=== PATIENT | female | born 1985 | race Caucasian/White ===

== ENCOUNTER 2017-02-07 10:47 | Inpatient (IN) ==
[2017-02-07] MEDS ORDERED: BUTORPHANOL 2 MG/ML VIAL IV PRN (11:06)
[2017-02-07] MEDS ORDERED: ONDANSETRON 4 MG/2 ML VIAL IV PRN ×2 (11:06→17:18)
[2017-02-07] MEDS ORDERED: LACTATED RINGERS 1,000 ML IV SCH ×2 (11:30→15:30)
[2017-02-07] MEDS ORDERED: OXYTOCIN/LR 20 UNIT/1,000 ML BAG IV SCH (11:30)
[2017-02-07 12:20] LABS: Basophils # 0.1 10*3/uL (0.0-0.2); Basophils % 0.4 % (0.0-0.8); Eosinophils # 0.1 10*3/uL (0.0-0.87); Eosinophils % 0.8 % (0.00-10.9); Hematocrit 35.2 VOL% (35.7-47.0); Hemoglobin 11.8 GM/DL (12.0-16.0); Immature Granulocytes % 2.4 %; Immature Granulocytes Absolute 0.34 #; Lymphocytes # 2.1 10*3/uL (1.4-4.0); Lymphocytes % 14.7 % (21.3-54.2); Mean Corpuscular HGB Conc 33.5 GM/DL (32-36); Mean Corpuscular Hemoglobin 31 PG (27-34); Mean Corpuscular Volume 93.6 FL (87-102); Mean Platelet Volume 11.5 FL (9.6-12.0); Monocytes # 0.8 10*3/uL (0.11-0.8); Monocytes % 5.6 % (1.7-12.7); Neutrophils # 10.8 10*3/uL (1.4-7.4); Neutrophils % 76.1 % (38.7-73.9); Platelet Count 261 T/CUMM (130-400); Red Blood Count 3.76 MC/CUMM (3.8-5.5); Red Cell Distribution Width 14.6 % (9.3-17.3); White Blood Count 14.2 T/CUMM (4-12)
[2017-02-07 12:30] LABS: INR 0.9; PT Patient Result 9.7 SECS; Partial Thromboplastin Time 26.5 SECS (0-40)
[2017-02-07] MEDS ORDERED: AMPICILLIN INJ 2,000 MG in SODIUM CHLORIDE 0.9% 100 ML IV ONE (12:31)
[2017-02-07 12:59] LABS: Albumin 2.7 G/DL (3.4-5.0); Bilirubin,Total 0.5 MG/DL (0.2-1.0); Calcium 9.2 MG/DL (8.5-10.1); Osmolality,Calculated 279.1 MOS/KG (273-304); Total Protein 6.3 G/DL (6.4-8.3); Uric Acid 5.9 MG/DL (2.6-6.0)
[2017-02-07] MEDS ORDERED: CITRIC ACID/SODIUM CITRATE 30 ML UDCUP PO ONE ×2 (15:10→15:23)
[2017-02-07] MEDS ORDERED: FAMOTIDINE 20 MG/2 ML VIAL IV ONE ×2 (15:10→15:23)
[2017-02-07] MEDS ORDERED: ONDANSETRON 4 MG/2 ML VIAL IV ONE (15:10)
[2017-02-07] MEDS ORDERED: hydrOXYzine HCL 25 MG/1 ML VIAL IM PRN ×2 (15:10→15:17)
[2017-02-07] MEDS ORDERED: fentaNYL 2 MCG/ROPIV 0.2% EPID 150 ML EPIDURAL SCH ×2 (15:10→15:17)
[2017-02-07] MEDS ORDERED: diphenhydrAMINE 50 MG/1 ML VIAL IV PRN ×4 (15:10→15:17)
[2017-02-07] MEDS ORDERED: PROMETHAZINE 25 MG/1 ML VIAL IM ONE ×2 (15:10→15:17)
[2017-02-07] MEDS ORDERED: LACTATED RINGERS 250 ML IV PRN (15:10)
[2017-02-07] MEDS ORDERED: ePHEDrine 50 MG/ML AMP IV PRN ×2 (15:10→15:17)
[2017-02-07] MEDS ORDERED: LACTATED RINGERS 1,000 ML IV ONE ×2 (15:10→15:17)
[2017-02-07] MEDS ORDERED: LACTATED RINGERS 500 ML IV ONE (15:17)
[2017-02-07] MEDS ORDERED: PHENYLEPHRINE 1 MG/10 ML SYRINGE IV ONE (16:21)
[2017-02-07] MEDS ORDERED: ONDANSETRON 4 MG/2 ML VIAL ONE (16:21)
[2017-02-07] MEDS ORDERED: AMPICILLIN INJ 1,000 MG in SODIUM CHLORIDE 0.9% 100 ML IV SCH (16:45)
[2017-02-07] MEDS ORDERED: ACETAMINOPHEN 325 MG TABLET PO PRN (17:18)
[2017-02-07] MEDS ORDERED: oxyCODONE/ACETAMINOPHEN 5-325 MG TABLET PO PRN (17:18)
[2017-02-07] MEDS ORDERED: OXYTOCIN/LR 20 UNIT/1,000 ML BAG IV ONE (17:18)
[2017-02-07] MEDS ORDERED: RHO(D) IMMUNE GLOBULIN 300 MCG SYRINGE IM ONE (17:18)
[2017-02-07] MEDS ORDERED: HYDROCORTISONE 2.5% RECTAL CREAM 30 GM TUBE TOP PRN (17:18)
[2017-02-07] MEDS ORDERED: BENZOCAINE 20%/MENTHOL 0.5% SPRAY 56 GM CAN TOP PRN (17:18)
[2017-02-07] MEDS ORDERED: BISACODYL 10 MG SUPP RECTAL PRN (17:18)
[2017-02-07] MEDS ORDERED: WITCH HAZEL PADS 100/JAR TOP PRN (17:18)
[2017-02-07] MEDS ORDERED: LANOLIN 50% CREAM 0.3 OZ TUBE TOP PRN (17:18)
[2017-02-07] MEDS ORDERED: MEASLES/MUMPS/RUBELLA VACCINE 0.5 ML VIAL SUBCUT ONE (17:18)
[2017-02-07] MEDS ORDERED: DIPH/TET/ACEL PERT BOOSTER VACCINE 0.5 ML VIAL IM ONE (17:18)
--- NOTE | 2017-02-07 17:21 | Operative Note ---
Date of procedure: 02/07/17 Procedure Preformed: Following informed consent patient taken to the operating room where spinal anesthesia was administered without difficulty. She is prepped and draped in usual fashion placed in dorsal supine position with a leftward tilt. A Pfannenstiel skin incision made with scalpel and carried through to the underlying layer fascia with Bovie. The fascia with incision was excised midlines to lateral with Vincent scissors. The inferior and superior aspects of the fascial incision were grasped with [place] clamps, elevated and the rectus muscles dissected off bluntly. The rectus muscles were then midline and the peritoneum identified and entered with Metzenbaum scissors. The cyst extends purely inferiorly with good visualization of the bladder. Bladder blade was then reinserted and the uterus incised in transverse fashion with scalpel. The baby was delivered in the footling breech presentation. Anterior posterior shoulders were delivered followed by the head. Baby's the nose mouth bulb suctioned. Cord clamped cut and the infant handed off to waiting nurses. Cord blood was sent. The placenta was then removed manually and the uterus cleared all clots and debris. The uterine incision with #1 Vicryl in a running locked fashion. A second layer same suture was used to obtain hemostasis. The gutters and cleared of all clots and debris and once again hemostasis will be satisfactory. Therefore all instruments from the abdomen. The fascia was repaired with [0] Vicryl in a running fashion. Subcutaneous tissue was closed with 0 plain in interrupted fashion skin was closed with dawson. At the end of the procedure all sponge lap needle counts correct 2. Baby and mother in stable condition. Surgeon / Physician: Hudson Elizondo Post-op diagnosis: same Findings: Liveborn male weight 7 lbs. 15 oz. in the footling breech position Specimens: none sent Estimated blood loss: other (350 mL) Anesthesia: spinal Disposition: floor
--- NOTE | 2017-02-07 17:24 | OB/GYN History & Physical ---
History of Present Illness Chief complaint: Preeclampsia History of present illness: Ms. Maldonado is a 31 year old female at 36 weeks gestation who presents to the office for routine visit patient. Patient was found to have elevated blood pressures for the second consecutive week with lower extremity swelling. Patient was sent to labor and delivery for preeclampsia evaluation and delivery. At the bedside once on labor and delivery patient was examined and found to be footling breech presentation. Therefore the decision was made to proceed with section. Home Medications Medication Instructions Recorded Confirmed Type Pnv No.95/Ferrous Fum/Folic AC 1 tablet PO DAILY 12/26/16 12/26/16 History [ Tablet] Allergies Allergy/AdvReac Type Severity Reaction Status Date / Time phenobarbital Allergy Intermediate HIVES Verified 12/26/16 11:50 12 point system: reviewed and no additional remarkable complaints except as stated Medical,Surgical,& Family Hx - Medical History Cardio: No history of: Aneurysm, Cardiac Dysrhythmia, Cerebrovascular Disease, Congenital Heart Disease, CHF, CAD, Hypertension, [place], Pacemaker, PVD, Valvular Heart Disease, Cardiovascular Problems Psychological: No history of: Anxiety Disorders, ADHD, Behavior Problems, Bipolar Disorder, Depression, Previous Suicide Attempt, Psychiatric/Substance Abuse Tx, Schizophrenia, Violent Behavior, Psychiatric Problems Neurology: No history of: Brain Aneurysm, Cerebral Hemorrhage, Cerebrovascular Accident , Cerebral Palsy, Dementia, Migraine, Multiple Sclerosis, Parkinson's Disease, Peripheral Neuropathy, Seizures, TIA, Vertigo, Neurologocal Cancer HEENT: No history of: Ear Problem, Eye Problem, Dental Problems, Glaucoma, Oral Cancer, HEENT Problems Endocrine: No history of: Adrenal Disease, Diabetes Mellitus (IDDM), Diabetes Mellitus ( NIDDM), Dyslipidemia, Thyroid Disorder, Endocrine Cancer, Endocrine Problems Rheumatology: No history of;: Fibromyalgia, Gout, Myasthenia Gravis, Psoriasis, Rheumatoid Arthritis, Sjogrens, Systemic Lupus Erythematosus, Rheumatological Problems Respiratory: No history of: Asthma, Bronchitis, COPD, Intubation, Obstructive Sleep Apnea , Pulmonary Embolism, Pulmonary Hypertension, Pneumonia, Lung Cancer, Respiratory Problems Renal: No history of: Renal (Kidney) Cancer, Dialysis, Renal Failure, Renal Problems Genitourinary: No history of: Bladder Problem, Kidney Stones, Recurring Urinary Tract Infections, Genitourinary Cancer, Problems Gastrointestinal: No history of: Bowel Obstruction, Clostridium Difficile, Crohn's Disease, Diverticulitis/ Diverticulosis, Esophageal Varices, GERD, Gastrointestinal Bleed , Hemorrhoids, Hematochezia, Hepatitis, Liver Problems, Pancreatitis, Polyps, Ulcerative Colitis, Gastrointestinal Cancer, GI Problems Musculoskeletal: No history of: Amputation, Back/Neck Problems, Degenerative Disk Disease, Herniated Disk, Osteoporosis, Musculoskeletal Cancer, Musculoskeletal Problems Hematology: No history of: Anemia, Blood Transfusion Reaction, Bleeding Problems, Clotting Problems, Sickle Cell Disease, Hematologic Cancer, Blood Disorders Reproductive: No history of: Abnormal Pap Smear, Breast Cancer, Endometriosis, Ectopic , Ovarian Cysts, Complication, Sexually Transmitted Disorders , Reproductive Cancer, Reproductive Problems Other: No history of: Anesthesia Reactions, Anaphylaxis, Cancer, Eczema, HIV, Malignant Hyperthermia, MRSA, Vancomycin-Resistant Enterococci, Skin Problems, Miscellaneous Medical Problems - Surgical History Cardiac Surgeries: Patient Denies: Femoral-Popliteal Bypass Graft, Cardiac Catheterization, Cardiac Surgery, Carotid Endarterectomy, Internal Defibrillator, Vascular Access Devices Thoracic Surgeries: Patient denies;: Kidney (Renal Surgery), Lithotripsy, Nephrectomy, Organ Transplant, Lobectomy Neurologic Surgeries: Patient denies: Brain Aneurysm, Cerebral Hemorrhage, Neurologic Surgery HEENT Surgeries: Patient denies: Carotid Endarterectomy, Eye Surgery, Thyroid Surgery, Tonsilectomy & Adenoidectomy Abdominal Surgeries: Patient denies: Abdominal Surgery, Appendectomy, Cholecystectomy, Colonoscopy , Gastric Bypass Surgery, EGD, Hernia Repair, Splenectomy Reproductive Surgeries: Patient denies;: Breast Surgery, Section, Cystoscopy, Dilation and Curettage, Genitourinary Surgery, Gynecologic Surgery, Hysterectomy, Tubal Ligation Orthopedic Surgeries: Patient denies;: Implanted Devices, Orthopedic Surgery, Spinal Surgery, Total Hip Replacement, Total Knee Replacement - Family History Family History: Reports;: Family Diabetes (PGF) Denies;: Family Anesthesia Reaction, Family Cancer, Family Heart Disease, Family Hematology, Family Hypertension, Family Psychiatric Problems, Family Stroke, Additional Family History - Social History Smoking Status: Never smoker Frequency of Alcohol Use: None 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 - Constitutional Vitals: Vital Signs Temp Pulse Resp BP 02/07/17 12:00 97.2 F L 90 18 123/61 General appearance: no acute distress - Antepartum / Post Antepartum Exam Cervix -Dilatation: 3 cm Effacement: 70% Station: -3 Rupture: Artificial rupture membranes with clear fluid Presentation: Footling breech Heart Rate: 140s-150s with no decelerations [place]: Contractions every 2 minutes - Head Head exam: Present: normocephalic - ENT ENT exam: Present: normal exam - Neck Neck exam: Present: normal inspection - Respiratory Respiratory exam: Present: clear to auscultation bilaterally - Cardiovascular Cardiovascular exam: Present: regular rate and rhythm - GI/Abdominal GI/Abdominal exam: Present: normal bowel sounds, soft - Extremities Exam Extremities exam: Present: edema (Lower extremities bilaterally +1) - Back Exam Back exam: Present: normal inspection - Neurological Exam Neurological exam: Present: alert, oriented X3 - Psychiatric Psychiatric exam: Present: normal affect, normal mood - Skin Skin exam: Present: normal color, warm Assessment and Plan (1) 36 weeks gestation of Status: Acute Current Visit: Yes (2) Pre-eclampsia affecting childbirth Status: Acute Assessment and plan: Patient admitted for delivery secondary to preeclampsia. Current Visit: Yes (3) Double footling breech presentation Status: Acute Assessment and plan: Patient prepped and consented for primary section. Risks benefits alternatives to the procedure reviewed. Current Visit: Yes Results - Labs CBC & BMP: 02/07/17 12:11 02/07/17 12:10 Quality Measures - VTE Contraindication to Pharmacological VTE Prophylaxis: High Risk of Bleeding
[2017-02-07 17:34] LABS: Apearance,Urine CLEAR (Clear); Bilirubin,Urine Negative (Negative); Blood, Urine Small mg/dL (Negative); Glucose,Urine (UA) Negative (Negative); Ketones,Urine 20 mg/dL (Negative); Mucus,Urine Occasional /LPF (Occasional); Nitrite,Urine Negative (Negative); Protein,Urine Negative; RBC,Urine 2 /HPF (0-4); Squamous Epithelial Cell,Urine Occasional /HPF (0-10); Urine Color Yellow (Yellow); Urine Specific Gravity 1.017 (1.001-1.035); Urine Urobilinogen < 2.0 EU/DL (0.2-1.0); WBC,Urine 2 /HPF (0-6)
[2017-02-07] MEDS ORDERED: fentaNYL 100 MCG/2 ML VIAL ONE (17:35)
[2017-02-07] MEDS ORDERED: MORPHINE 10 MG/10 ML VIAL ONE (17:35)
[2017-02-07 17:38] LABS: Cord Arterial Blood HCO3 20.8 MMOL/L
[2017-02-07] MEDS: oxyCODONE/ACETAMINOPHEN 5-325 MG TABLET PO PRN (19:10)
[2017-02-07] MEDS: DOCUSATE SODIUM 100 MG CAPSULE PO SCH (22:00)
[2017-02-08] MEDS: oxyCODONE/ACETAMINOPHEN 5-325 MG TABLET PO PRN ×4 (01:00→20:40)
--- NOTE | 2017-02-08 07:49 | OB/GYN Progress Note ---
Assessment and Plan (1) 36 weeks gestation of Status: Acute Current Visit: Yes (2) Pre-eclampsia affecting childbirth Status: Acute Assessment and plan: Patient admitted for delivery secondary to preeclampsia. Blood pressure stable we will continue to follow. However no antihypertensives added at this time Current Visit: Yes (3) Double footling breech presentation Status: Acute Assessment and plan: Patient prepped and consented for primary section. Risks benefits alternatives to the procedure reviewed. Current Visit: Yes (4) delivery delivered Status: Acute Assessment and plan: Routine and postoperative care. Patient encouraged to ambulate. Discharge planning in a.m. 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 - Constitutional Vitals: Vital Signs Temp Pulse Resp BP Pulse Ox 02/08/17 07:31 98.1 F 96 H 20 108/57 96 02/08/17 04:30 97.6 F 93 H 18 111/60 97 02/08/17 01:00 97.5 F L 85 18 113/63 96 02/07/17 23:00 97.3 F L 83 20 123/61 97 02/07/17 22:00 97.2 F L 84 20 116/57 96 02/07/17 21:00 97.4 F L 86 20 112/72 95 02/07/17 20:30 97.1 F L 84 18 107/62 96 02/07/17 20:00 97.0 F L 70 18 112/82 96 02/07/17 16:00 97.8 F 02/07/17 12:00 97.2 F L 90 18 123/61 General appearance: no acute distress - Gyencological / Post Surgical Post Surgical Exam Extremities DIESEL MECHANIC: Present: normal Abdomen obstetrics progress note: Present: normal appearance, soft Incision OB: Present: normal, dry, intact - Head Head exam: Present: normocephalic - Neck Neck exam: Present: normal inspection - Respiratory Respiratory exam: Present: clear to auscultation bilaterally - Cardiovascular Cardiovascular exam: Present: regular rate and rhythm - GI/Abdominal GI/Abdominal exam: Present: normal bowel sounds, soft (Incision clean dry and intact) - Extremities Exam Extremities exam: Present: edema (Trace edema of the lower extremities bilaterally) - Back Exam Back exam: Present: normal inspection - Neurological Exam Neurological exam: Present: alert, oriented X3 - Psychiatric Psychiatric exam: Present: normal affect, normal mood - Skin Skin exam: Present: normal color, warm Results - Labs CBC & BMP: 02/07/17 12:11 02/07/17 12:10
--- NOTE | 2017-02-08 07:54 | Discharge Summary ---
Hospital Course - Hospital Course Hospital Course: This is a 31-year-old at admitted at 36 weeks gestation secondary to preeclampsia. Patient with a one-week history of labile blood pressures culminated to decision to admit for delivery at 36 weeks. Patient complained of headache and lower extremity swelling. She denied visual changes or epigastric pain. Upon pelvic examination was patient was found to have a footling breech presentation and therefore was prepped for primary . Hospital course was unremarkable. Her blood pressure stabilized and by postoperative day #2 she was ready for discharge Diagnosis - Discharge Diagnosis (1) 36 weeks gestation of Status: Acute (2) Pre-eclampsia affecting childbirth Status: Acute (3) Double footling breech presentation Status: Acute (4) delivery delivered Status: Acute Specialty Discharge - Follow Up or Referrals Follow up with: Hudson Elizondo MD [Physician] - 02/14/17 8:45 am Discharge Plan - Discharge Data Disposition: Disch To Home/Self Care Condition at Discharge: Stable Discharge Diet: advance to your usual diet Activity: resume usual activities as tolerated, no lifting (Pelvic rest) Hygiene: may shower Weight Bearing at Discharge: weight bear as tolerated Driving: not until seen by doctor Contact your physician if you experience:: fever over 101, Difficulty voiding, Redness or swelling, Nausea/Vomiting, Shortness of breath, Bleeding, pain uncontrolled by pain medications - Discharge Medications New oxyCODONE/ACETAMINOPHEN 5-325 [Percocet 5-325] 2 tablet PO Q6H PRN #40 tablet PRN Reason: Pain Severe (8-10) No Action Pnv No.95/Ferrous Fum/Folic AC [ Tablet] 1 tablet PO DAILY - Follow Up or Referral Follow Up: Hudson Elizondo MD [Physician] - 02/14/17 8:45 am - Forms/Instructions Instructions: Oxycodone/Acetaminophen (By mouth), Section (DC), Depression (GEN), Acute Wound Care (DC), Surgical Site Infections ( GEN), Bleeding (DC) Exam - Constitutional Vitals: Period Temp Pulse Resp BP Sys/Sanchez Pulse Ox Last 24 Hr 97.0 F-98.1 F 70-96 18-20 107-123/57-82 95-97 General appearance: no acute distress - Head Head exam: Present: normocephalic - ENT ENT exam: Present: normal exam - Neck Neck exam: Present: normal inspection - Respiratory Respiratory exam: Present: clear to auscultation bilaterally - Cardiovascular Cardiovascular exam: Present: regular rate and rhythm - GI/Abdominal GI/Abdominal exam: Present: normal bowel sounds, soft - Extremities Exam Extremities exam: Present: normal inspection - Back Exam Back exam: Present: normal inspection - Neurological Exam Neurological exam: Present: alert, oriented X3 - Psychiatric Psychiatric exam: Present: normal affect, normal mood - Skin Skin exam: Present: normal color, warm Discharge Results Procedures and tests throughout hospitalization: Pending Orders 02/08/17 04:00 Comp Blood Count Auto Diff IN AM Labs on day of discharge: Labs from last 24 hours 02/07/17 02/07/17 02/07/17 17:21 16:00 12:11 WBC 14.2 H RBC 3.76 L Hgb 11.8 L Hct 35.2 L MCV 93.6 MCH 31 MCHC 33.5 RDW 14.6 Plt Count 261 MPV 11.5 Neut % (Auto) 76.1 H Lymph % (Auto) 14.7 L [place] % (Auto) 5.6 Eos % (Auto) 0.8 Baso % (Auto) 0.4 Neut # (Auto) 10.8 H Lymph # (Auto) 2.1 [place] # (Auto) 0.8 Eos # (Auto) 0.1 Baso # (Auto) 0.1 Immature Gran % 2.4 Nucleated RBC % 0.0 Immature Gran # 0.34 Nucleated RBCs # 0.00 INR PT Patient/Control Mix Fibrinogen Circ Anticoag PTT Cord ABG pH 7.232 Cord ABG pCO2 65.9 Cord ABG pO2 15.8 Cord ABG HCO3 20.8 Cord ABG Total CO2 25.0 Cord ABG Base Excess -2.2 Sodium Potassium Chloride Carbon Dioxide Anion Gap BUN Creatinine GFR Calculation BUN/Creatinine Ratio Glucose Calculated Osmolality Uric Acid Calcium Total Bilirubin AST ALT Alkaline Phosphatase Total Protein Albumin Globulin Albumin/Globulin Ratio Urine Color Yellow Urine Appearance Clear Urine pH 6.0 Ur Specific [place] 1.017 Urine Protein Negative Urine Glucose (UA) Negative Urine Ketones 20 Urine Blood Small Urine Nitrate Negative Urine Bilirubin Negative Urine Urobilinogen < 2.0 H Urine Leukocytes Negative Urine RBC 2 Urine WBC 2 Ur Squamous Epith Cells Occasional Urine Mucus Occasional Ur Culture Indicated? Not indicated Blood Type Antibody Screen 02/07/17 02/07/1702/07/17 12:10 12:10 12:10 WBC RBC Hgb Hct MCV MCH MCHC RDW Plt Count MPV Neut % (Auto) Lymph % (Auto) [place] % (Auto) Eos % (Auto) Baso % (Auto) Neut # (Auto) Lymph # (Auto) [place] # (Auto) Eos # (Auto) Baso # (Auto) Immature Gran % Nucleated RBC % Immature Gran # Nucleated RBCs # INR 0.9 PT Patient/Control Mix 9.7 Fibrinogen 544 H Circ Anticoag PTT 26.5 Cord ABG pH Cord ABG pCO2 Cord ABG pO2 Cord ABG HCO3 Cord ABG Total CO2 Cord ABG Base Excess Sodium 142 Potassium 4.0 Chloride 106 Carbon Dioxide 23 Anion Gap 17.0 H BUN 9 Creatinine 0.60 GFR Calculation 168 BUN/Creatinine Ratio 15.00 Glucose 67 L Calculated Osmolality 279.1 Uric Acid 5.9 Calcium 9.2 Total Bilirubin 0.50 AST 21 ALT 29 Alkaline Phosphatase 113 Total Protein 6.3 L Albumin 2.7 L Globulin 3.6 H Albumin/Globulin Ratio 0.7 L Urine Color Urine Appearance Urine pH Ur Specific [place] Urine Protein Urine Glucose (UA) Urine Ketones Urine Blood Urine Nitrate Urine Bilirubin Urine Urobilinogen Urine Leukocytes Urine RBC Urine WBC Ur Squamous Epith Cells Urine Mucus Ur Culture Indicated? Blood Type O POSITIVE Antibody Screen Negative DS: Provider Date of admission: 02/07/17 11:06 Primary care physician: . No PCP Attending physician on admission: Hudson Elizondo MD Consults: 02/07/17 11:06 Consult to Anesthesiology [CONS] Routine Consulting Provider: Reason for Anesthesiology: Epidural Consult Comment: Epidural for pain managment 02/07/17 17:19 Consult to Risk Control Analyst [CONS] Routine Consult Risk Control Analyst: Breast Feeding Discharging clinician: Hudson Elizondo MD
[2017-02-08 08:11] LABS: Basophils # 0.1 10*3/uL (0.0-0.2); Basophils % 0.5 % (0.0-0.8); Eosinophils # 0.2 10*3/uL (0.0-0.87); Eosinophils % 1.8 % (0.00-10.9); Hematocrit 31.4 VOL% (35.7-47.0); Hemoglobin 10.3 GM/DL (12.0-16.0); Immature Granulocytes % 1.5 %; Immature Granulocytes Absolute 0.16 #; Lymphocytes # 1.7 10*3/uL (1.4-4.0); Lymphocytes % 15.5 % (21.3-54.2); Mean Corpuscular HGB Conc 32.8 GM/DL (32-36); Mean Corpuscular Hemoglobin 31 PG (27-34); Mean Corpuscular Volume 94.9 FL (87-102); Mean Platelet Volume 11.4 FL (9.6-12.0); Monocytes # 0.7 10*3/uL (0.11-0.8); Monocytes % 6.5 % (1.7-12.7); Neutrophils # 7.9 10*3/uL (1.4-7.4); Neutrophils % 74.2 % (38.7-73.9); Platelet Count 214 T/CUMM (130-400); Red Blood Count 3.31 MC/CUMM (3.8-5.5); Red Cell Distribution Width 14.6 % (9.3-17.3); White Blood Count 10.7 T/CUMM (4-12)
[2017-02-08] MEDS: DOCUSATE SODIUM 100 MG CAPSULE PO SCH ×2 (10:00→20:47)
--- NOTE | 2017-02-08 10:45 | Anesthesia Post-Op ---
Anesthesia Post OP - Post Ansesthetic Evaluation Patient seen in post op: Yes Resp: within normal limits CV: within normal limits Mental: within normal limits Temp: within normal limits [id number]: within normal limits Nausea and Vomiting: within normal limits Pain: within normal limits
[2017-02-08] MEDS: IBUPROFEN 800 MG TABLET PO PRN ×2 (12:35→20:40)
[2017-02-08] MEDS: MAGNESIUM HYDROXIDE SUSP 30 ML UDCUP PO PRN (20:40)
[2017-02-09] MEDS: IBUPROFEN 800 MG TABLET PO PRN (03:40)
[2017-02-09] MEDS: MAGNESIUM HYDROXIDE SUSP 30 ML UDCUP PO PRN (03:40)
[2017-02-09] MEDS: oxyCODONE/ACETAMINOPHEN 5-325 MG TABLET PO PRN (03:40)
[2017-02-09] MEDS: DOCUSATE SODIUM 100 MG CAPSULE PO SCH (09:29)
[2017-02-09 11:21] VITALS: BP 127/71
== END 2017-02-09 12:45 | disposition home or self-care (01) | DRG 766 ==
LOC: N.LDOUT 10:47 → N.LD 10:55 → N.OB 20:00
PROVIDERS: ADMIT Obstetrics & Gynecology; ATTEND Obstetrics & Gynecology
PROC: LDCSECT (ICD-10-PCS; 2017-02-07 15:50)